=== PATIENT | female | born 1950 | race Caucasian/White ===

== ENCOUNTER 2017-10-04 13:44 | Emergency (ER) | payer MEDICARE ==
[2017-10-04] MEDS ORDERED: Sodium Chloride 0.9% 1000 ML 1,000 ML IV SCH (14:00)
--- NOTE | 2017-10-04 14:01 | ERPHSYRPT ---
- History of Present Illness Time Seen by Provider: 10/04/17 13:45 Source: patient, EMS (ave rosalaurenb en route), [facility] records Physician History: CC: abd pain and short of air Hx: 66 y/o patient of Dr Radha Hennessy. She lives in [place]. Sh ehas hx of DM, Bipolar disorder, depression, lymphoid leukemia, COPD, Anemia, hypercholesterolemia, GERD. Recently found to have cirrhosis and possible liver mets on CT. She is scheduled for CT guided liver biopsy soon. She has increased abd pain so was sent to ER. EMS noted some shortness of breath so gave nebs. No fever or chills. No vomiting. No chest pain. Timing/Duration: day(s) (few) Allergies/Adverse Reactions: Sulfa (Sulfonamide Antibiotics) [Sulfa(Sulfonamide Antibiotics)] Allergy ( Intermediate, Verified 10/04/17 14:06) Hives venlafaxine [From Effexor] Allergy (Verified 10/04/17 14:06) Home Medications: Benazepril HCl [Lotensin] 20 mg PO DAILY 11/08/12 [History] Bupropion HCl [Wellbutrin] 100 mg PO BID 11/08/12 [History] Glipizide 2.5 mg 10 mg PO BID 11/08/12 [History] Ibuprofen 400 mg [Motrin 400 mg] 400 mg PO TID 11/08/12 [History] Insulin Glargine [Lantus Insulin] 60 unit SQ HS 11/08/12 [History] Metformin HCl 1000 mg [Glucophage 1000 MG] 1,000 mg PO BID 11/08/12 [History] Omeprazole 20 MG [Prilosec 20 mg] 40 mg PO DAILY 11/08/12 [History] Pioglitazone HCl [Actos] 30 mg PO DAILY 11/08/12 [History] Quetiapine Fumarate 100 mg [Seroquel 100 MG] 400 mg PO HS 11/08/12 [ History] Clonazepam 1 mg PO 03/17/13 [History] Hx Tetanus, Diphtheria Vaccination/Date Given: Yes Hx Influenza Vaccination/Date Given: Yes (2011) Hx Pneumococcal Vaccination/Date Given: Yes (2010) - Review of Systems Constitutional: Fatigue, Malaise, Weakness, No Fever, No Chills Eyes: No Symptoms Ears, Nose, & Throat: No Symptoms Respiratory: Dyspnea, No Cough Cardiac: No Chest Pain Abdominal/Gastrointestinal: Abdominal Pain, No Nausea, No Vomiting, No Diarrhea Genitourinary Symptoms: No Dysuria Skin: No Rash Neurological: No Headache Hematologic/Lymphatic: Easy Bruising All Other Systems: Reviewed and Negative - Past Medical History Pertinent Past Medical History: Yes (CLL, bipolar) Neurological History: TIA ENT History: No Pertinent History Cardiac History: No Pertinent History Respiratory History: COPD, Emphysema Endocrine Medical History: Diabetes Type II Musculoskeletal History: No Pertinent History GI Medical History: No Pertinent History History: No Pertinent History Psycho-Social History: Anxiety, Bipolar, Depression Female Reproductive Disorders: Cervical Cancer Other Medical History: LEUKEMIA DX 5 YRS AGO. - Past Surgical History Past Surgical History: Yes Neuro Surgical History: No Pertinent History Cardiac: No Pertinent History Respiratory: No Pertinent History Gastrointestinal: No Pertinent History Genitourinary: No Pertinent History Musculoskeletal: No Pertinent History Female Surgical History: Other Other Surgical History: D&C - Social History Smoking Status: Current every day smoker How long have you smoked: 49 Exposure to second hand smoke: No Alcohol Use: None Drug Use: none Patient Lives Alone: No (LIVES WITH SON) Significant Family History: no pertinent family hx - Nursing Vital Signs Nursing Vital Signs: Initial Vital Signs Temperature 97.7 F 10/04/17 13:45 Pulse Rate 58 L 10/04/17 13:45 Respiratory Rate 22 10/04/17 13:45 Blood Pressure 97/65 10/04/17 13:45 O2 Sat by Pulse Oximetry 95 10/04/17 13:45 Pain Scale Pain Intensity 6 - Physical Exam General Appearance: alert, obese, other (sallow appearing lady) Eye Exam: PERRL/EOMI, No scleral icterus Ears, Nose, Throat Exam: dry mucous membranes Neck Exam: supple Respiratory Exam: diminished breath sounds, rhonchi Cardiovascular Exam: regular rate/rhythm, tachycardia Gastrointestinal/Abdomen Exam: soft, distention, other (diffuse discomfort) Back Exam: normal inspection Extremity Exam: pedal edema Neurologic Exam: alert, oriented x 3, cooperative, No motor deficits Skin Exam: warm, dry - Course Nursing assessment & vital signs reviewed: Yes EKG Interpreted by Me: RATE (121), Sinus Tach, NORMAL AXIS, NORMAL INTERVALS ( QTc 433), Other (late transition) - Radiology Exams cxr X-ray Interpretation: Teleradiologist Report ( new 6.5 cm left apical masslike opacity. Minimal bibasilar) Ordered Tests: Active Orders 24 hr Category Date Time Status Catheter-[place] STAT Care 10/04/17 13:50 Active EKG-ER Only STAT Care 10/04/17 13:50 Active IV Insertion STAT Care 10/04/17 13:50 Active IV Insertion-2nd Peripheral STAT Care 10/04/17 14:07 Active NPO (ED) STAT Care 10/04/17 13:50 Active Oxygen-ED Only NASAL CANNULA 2 lpm Care 10/04/17 13:54 Active Rectal Temperature STAT Care 10/04/17 13:54 Active ABDOMEN AND PELVIS W CONTRAST [CT] Stat Exams 10/04/17 14:27 Ordered CHEST 1 VIEW (PORTABLE) Stat Exams 10/04/17 13:50 Completed BLOOD CULTURE Stat Lab 10/04/17 14:21 Received BMP Routine Lab 10/04/17 14:21 Completed CBC W DIFF Stat Lab 10/04/17 14:21 Completed CULTURE,URINE Stat Lab 10/04/17 14:50 Received Hepatic Function Panel Routine Lab 10/04/17 14:21 Completed LIPASE Routine Lab 10/04/17 14:21 Completed Lactic Acid Stat Lab 10/04/17 14:10 Completed Lactic Acid Stat Lab 10/04/17 16:25 Results Manual Differential NC Stat Lab 10/04/17 14:21 Completed PROTIME WITH INR Stat Lab 10/04/17 14:21 Completed PTT Stat Lab 10/04/17 14:21 Completed TROPONIN Q3H Lab 10/04/17 14:21 Completed TROPONIN Q3H Lab 10/04/17 17:00 Ordered TROPONIN Q3H Lab 10/04/17 20:00 Ordered TROPONIN Q3H Lab 10/04/17 23:00 Ordered TROPONIN Q3H Lab 10/05/17 02:00 Ordered UA W/ MICROSCOPIC Stat Lab 10/04/17 14:50 Completed VENOUS BLOOD GAS Stat Lab 10/04/17 14:10 Completed Medication Summary Generic Name Dose Route Start Last Admin Trade Name Freq PRN Reason Stop Dose Admin Sodium Chloride 1,000 mls @ 100 mls/hr 10/04/17 14:00 10/04/17 14:13 Sodium Chloride 0.9% 1000 Ml IV 11/03/17 13:59 100 mls/hr .Q10H JURGEN Administration Cefepime HCl 2 g/ Sodium 100 mls @ 200 mls/hr 10/04/17 15:00 10/04/17 14:57 Chloride IV 11/03/17 14:59 200 mls/hr Q12HT JURGEN Administration Sodium Chloride 1,000 mls @ 999 mls/hr 10/04/17 14:45 10/04/17 15:23 Sodium Chloride 0.9% 1000 Ml IV 10/04/17 17:45 999 mls/hr .Q1H1M JURGEN Administration Discontinued Medications Generic Name Dose Route Start Last Admin Trade Name Rashard PRN Reason Stop Dose Admin Sodium Chloride Confirm 10/04/17 14:39 Sodium Chloride 0.9% 1000 Ml Administered 10/04/17 14:40 Dose 2,000 mls @ ud .ROUTE .K-MED ONE Lab/Rad Data: Laboratory Result Diagrams 10/04/17 14:21 10/04/17 14:21 Laboratory Results 10/04/17 10/04/17 10/04/17 Range/Units 16:25 14:50 14:21 WBC (4.0-10.5) K/mm3 RBC (4.1-5.4) M/mm3 Hgb (12.0-16.0) gm/dl Hct (35-47) % MCV (78-100) fl MCH (26-32) pg MCHC (32-36) g/dl RDW (11.5-14.0) % Plt Count (150-450) K/mm3 MPV (6-9.5) fl Segmented Neutrophils (36.0-66.0) % Band Neutrophils (0.0-2.0) % Lymphocytes (Manual) (24-44) % Monocytes (Manual) (0.0-12.0) % Eosinophils (Manual) (0.00-3.0) % Differential Comment Platelet Estimate (NORMAL) Polychromasia Anisocytosis Morphology Comment INR (0.8-3.0) APTT (25.3-37.0) SECONDS VBG pH (7.32-7.42) VBG pCO2 at Pat Temp (42-55) mm/Hg VBG pO2 at Pat Temp (25-40) mm/Hg VBG HCO3 (22-28) meq/L VBG O2 Sat (Josefa) (95-100) VBG Base Excess (-2.0-2.0) VBG Hemoglobin VBG Carboxyhemoglobin (0.0-6.9) % T HGB POC Potassium (3.5-5.1) Sodium (137-145) mmol/L Potassium (3.5-5.1) mmol/L Chloride (98-107) mEq/L Carbon Dioxide (22-30) mmol/L Anion Gap (5-15) MEQ/L BUN (7-17) mg/dl Creatinine (0.52-1.04) mg/dl Estimated GFR ML/MIN Glucose (74-106) mg/dL Lactic Acid 11.0 H (0.4-2.0) Calcium (8.4-10.2) mg/dL Total Bilirubin (0.2-1.3) mg/d? Direct Bilirubin (0.0-0.4) MG/DL AST (14-36) U/L ALT (0-35) U/L Alkaline Phosphatase (38-126) U/L Ammonia (9-30) umol/L Troponin I (0.000-0.034) ng/ml Serum Total Protein (6.3-8.2) mg/dl Albumin (3.5-5.0) g/dl Lipase (23-300) U/L Ur Collection Type CCMS Urine Color CARMEN (YELLOW) Urine Appearance SLIGHTLY CLOUDY (CLEAR) Urine pH 5.0 (5-6) Ur Specific Sentinel 1.025 (1.005-1.025) Urine Protein TRACE (Negative) Urine Ketones NEGATIVE (NEGATIVE) Urine Blood 50 (0-5) Willard/ul Urine Nitrite NEGATIVE (NEGATIVE) Urine Bilirubin NEGATIVE (NEGATIVE) Urine Urobilinogen NORMAL (0-1) mg/dL Ur Leukocyte Esterase NEGATIVE (NEGATIVE) Urine Microscopic RBC 2-5 (0-2) /HPF Urine Microscopic WBC 0-2 (0-5) /HPF Ur Epithelial Cells MODERATE (FEW) /HPF Urine Bacteria RARE (NEGATIVE) /HPF Urine Culture Reflexed YES (NO) Urine Glucose NEGATIVE (NEGATIVE) mg/dL Specimen Received T@1500 ABO Group O Rh Factor POS Antibody Screen NEG (NEGATIVE) 10/04/17 10/04/17 10/04/17 Range/Units 14:21 14:21 14:21 WBC (4.0-10.5) K/mm3 RBC (4.1-5.4) M/mm3 Hgb (12.0-16.0) gm/dl Hct (35-47) % MCV (78-100) fl MCH (26-32) pg MCHC (32-36) g/dl RDW (11.5-14.0) % Plt Count (150-450) K/mm3 MPV (6-9.5) fl Segmented Neutrophils (36.0-66.0) % Band Neutrophils (0.0-2.0) % Lymphocytes (Manual) (24-44) % Monocytes (Manual) (0.0-12.0) % Eosinophils (Manual) (0.00-3.0) % Differential Comment Platelet Estimate (NORMAL) Polychromasia Anisocytosis Morphology Comment INR 1.29 (0.8-3.0) APTT 39.3 H (25.3-37.0) SECONDS VBG pH (7.32-7.42) VBG pCO2 at Pat Temp (42-55) mm/Hg VBG pO2 at Pat Temp (25-40) mm/Hg VBG HCO3 (22-28) meq/L VBG O2 Sat (Josefa) (95-100) VBG Base Excess (-2.0-2.0) VBG Hemoglobin VBG Carboxyhemoglobin (0.0-6.9) % T HGB POC Potassium (3.5-5.1) Sodium 136 L (137-145) mmol/L Potassium 4.9 (3.5-5.1) mmol/L Chloride 96 L (98-107) mEq/L Carbon Dioxide 16 L (22-30) mmol/L Anion Gap 28.9 H (5-15) MEQ/L BUN 33 H (7-17) mg/dl Creatinine 1.35 H (0.52-1.04) mg/dl Estimated GFR 41 ML/MIN Glucose 164 H (74-106) mg/dL Lactic Acid (0.4-2.0) Calcium 8.9 (8.4-10.2) mg/dL Total Bilirubin 2.40 H (0.2-1.3) mg/d? Direct Bilirubin 2.1 H (0.0-0.4) MG/DL AST 230 H (14-36) U/L ALT 98 H (0-35) U/L Alkaline Phosphatase 1090 H (38-126) U/L Ammonia 40 H (9-30) umol/L Troponin I < 0.012 (0.000-0.034) ng/ml Serum Total Protein 5.6 L (6.3-8.2) mg/dl Albumin 3.3 L (3.5-5.0) g/dl Lipase 58 (23-300) U/L Ur Collection Type Urine Color (YELLOW) Urine Appearance (CLEAR) Urine pH (5-6) Ur Specific Sentinel (1.005-1.025) Urine Protein (Negative) Urine Ketones (NEGATIVE) Urine Blood (0-5) Willard/ul Urine Nitrite (NEGATIVE) Urine Bilirubin (NEGATIVE) Urine Urobilinogen (0-1) mg/dL Ur Leukocyte Esterase (NEGATIVE) Urine Microscopic RBC (0-2) /HPF Urine Microscopic WBC (0-5) /HPF Ur Epithelial Cells (FEW) /HPF Urine Bacteria (NEGATIVE) /HPF Urine Culture Reflexed (NO) Urine Glucose (NEGATIVE) mg/dL Specimen Received ABO Group Rh Factor Antibody Screen (NEGATIVE) 10/04/17 10/04/17 10/04/17 Range/Units 14:21 14:10 14:10 WBC 25.3 H* (4.0-10.5) K/mm3 RBC 4.07 L (4.1-5.4) M/mm3 Hgb 11.8 L (12.0-16.0) gm/dl Hct 37.4 (35-47) % MCV 91.9 (78-100) fl MCH 28.9 (26-32) pg MCHC 31.6 L (32-36) g/dl RDW 20.1 H (11.5-14.0) % Plt Count 177 (150-450) K/mm3 MPV 10.3 H (6-9.5) fl Segmented Neutrophils 28 L (36.0-66.0) % Band Neutrophils 6 H (0.0-2.0) % Lymphocytes (Manual) 58 H (24-44) % Monocytes (Manual) 7 (0.0-12.0) % Eosinophils (Manual) 1 (0.00-3.0) % Differential Comment ABNORMAL Platelet Estimate NORMAL (NORMAL) Polychromasia RARE Anisocytosis 1+ Morphology Comment INR (0.8-3.0) APTT (25.3-37.0) SECONDS VBG pH 7.31 L (7.32-7.42) VBG pCO2 at Pat Temp 32 L (42-55) mm/Hg VBG pO2 at Pat Temp 44 H (25-40) mm/Hg VBG HCO3 16.1 L* (22-28) meq/L VBG O2 Sat (Josefa) 82.9 L (95-100) VBG Base Excess -9.1 L (-2.0-2.0) VBG Hemoglobin 11.8 VBG Carboxyhemoglobin 3.1 (0.0-6.9) % T HGB POC Potassium 4.8 (3.5-5.1) Sodium (137-145) mmol/L Potassium (3.5-5.1) mmol/L Chloride (98-107) mEq/L Carbon Dioxide (22-30) mmol/L Anion Gap (5-15) MEQ/L BUN (7-17) mg/dl Creatinine (0.52-1.04) mg/dl Estimated GFR ML/MIN Glucose (74-106) mg/dL Lactic Acid 14.1 H (0.4-2.0) Calcium (8.4-10.2) mg/dL Total Bilirubin (0.2-1.3) mg/d? Direct Bilirubin (0.0-0.4) MG/DL AST (14-36) U/L ALT (0-35) U/L Alkaline Phosphatase (38-126) U/L Ammonia (9-30) umol/L Troponin I (0.000-0.034) ng/ml Serum Total Protein (6.3-8.2) mg/dl Albumin (3.5-5.0) g/dl Lipase (23-300) U/L Ur Collection Type Urine Color (YELLOW) Urine Appearance (CLEAR) Urine pH (5-6) Ur Specific Sentinel (1.005-1.025) Urine Protein (Negative) Urine Ketones (NEGATIVE) Urine Blood (0-5) Willard/ul Urine Nitrite (NEGATIVE) Urine Bilirubin (NEGATIVE) Urine Urobilinogen (0-1) mg/dL Ur Leukocyte Esterase (NEGATIVE) Urine Microscopic RBC (0-2) /HPF Urine Microscopic WBC (0-5) /HPF Ur Epithelial Cells (FEW) /HPF Urine Bacteria (NEGATIVE) /HPF Urine Culture Reflexed (NO) Urine Glucose (NEGATIVE) mg/dL Specimen Received ABO Group Rh Factor Antibody Screen (NEGATIVE) - Progress Progress Note: 10/04/17 16:06 CXR: Portable chest demonstrates new 6.5 cm left apical masslike opacity. Minimal bibasilar fibrosis/scarring. No large effusion. Heart is not enlarged. Bony thorax intact with mild degenerative changes. Impression: New left apical masslike opacity better evaluated with CT chest exam. Of interest, CT abdomen/pelvis October 01, 2017 reports hepatic metastasis. Signed by: Dixon Hadley Date Signed: 10/04/2017 IVF bolus given. Cultures sent. Cefepime given. Called Dr Radha Hennessy and he advised is under the care of Dr Crawford oncology. Called Dr De León for [place] and he advised transfer to [place] under hospitalist. Called [place] one call and await accepting physician. 10/04/17 16:[address] Ruby Avalos [facility] who accepts transfer to [facility] IP Monitor. Repeat lactic 11. Pt alert and aware of plan. Counseled pt/family regarding: lab results, diagnosis, need for follow-up, rad results - Departure Time of Disposition: 16:31 Departure Disposition: Transfer ([facility]) Clinical Impression: Lactic acidosis, Sepsis, lung mass with liver metastasis Condition: Fair Critical Care Time: Yes Critical Care Time(excluding separately billable procedures): 30-74 minutes Referrals: OSMIN FAN [Primary Care Provider] -
[2017-10-04 14:15] LABS: VBG BASE EXCESS -9.1 (-2.0-2.0); VBG CARBOXYHEMOGLOBIN 3.1 % T HGB (0.0-6.9); VBG HCO3- 16.1 meq/L (22-28); VBG HEMOGLOBIN 11.8; VBG O2 SATURATION 82.9 (95-100); VBG POTASSIUM 4.8 (3.5-5.1); VBG pH 7.31 (7.32-7.42)
[2017-10-04 14:16] LABS: Lactic Acid 14.1 (0.4-2.0)
[2017-10-04 14:22] LABS: Hematocrit 37.4 % (35-47); Hemoglobin 11.8 gm/dl (12.0-16.0); Mean Cell Volume 91.9 fl (78-100); Mean Corpuscular Hgb Concent. 31.6 g/dl (32-36); Mean Platelet Volume 10.3 fl (6-9.5); Platelet Count 177 K/mm3 (150-450); Red Blood Count 4.07 M/mm3 (4.1-5.4); Red Cell Distribution Width 20.1 % (11.5-14.0)
[2017-10-04 14:25] LABS: Mean Corpuscular Hemoglobin 28.9 pg (26-32); White Blood Count 25.3 K/mm3 (4.0-10.5)
[2017-10-04 14:36] LABS: ANISOCYTOSIS 1+; BAND 6 % (0.0-2.0); Eosinophil 1 % (0.00-3.0); Lymphocytes 58 % (24-44); Monocyte 7 % (0.0-12.0); Neutrophils 28 % (36.0-66.0); Platelet Estimate NORMAL (NORMAL); Polychromasia RARE; Total Cells Counted 100
[2017-10-04 14:38] LABS: Granulocyte Absolute (ANC) 8.5 (1.4-6.9)
[2017-10-04] MEDS ORDERED: Sodium Chloride 0.9% 1000 ML 2,000 ML ONE (14:39)
[2017-10-04] MEDS: Sodium Chloride 0.9% 1000 ML 1,000 ML IV SCH ×3 (14:41→15:23)
--- NOTE | 2017-10-04 14:43 | XRAY ---
Indication: Short of breath. Distended abdomen. COPD. Comparison: November 08, 2013. Portable chest demonstrates new 6.5 cm left apical masslike opacity. Minimal bibasilar fibrosis/scarring. No large effusion. Heart is not enlarged. Bony thorax intact with mild degenerative changes. Impression: New left apical masslike opacity better evaluated with CT chest exam. Of interest, CT abdomen/pelvis October 01, 2017 reports hepatic metastasis.
[2017-10-04 14:51] LABS: INR 1.29 (0.8-3.0)
[2017-10-04 14:54] LABS: PTT 39.3 SECONDS (25.3-37.0)
[2017-10-04 15:00] LABS: ABO TYPING O; ALBUMIN 3.3 g/dl (3.5-5.0); ALKALINE PHOSPHATASE 1090 U/L (38-126); ANION GAP 28.9 MEQ/L (5-15); Antibody Screen NEG (NEGATIVE); BLOOD UREA NITROGEN 33 mg/dl (7-17); CHLORIDE 96 mEq/L (98-107); Calcium 8.9 mg/dL (8.4-10.2); Creatinine 1 1.35 mg/dl (0.52-1.04); Direct Bilirubin 2.1 MG/DL (0.0-0.4); Glucose 164 mg/dL (74-106); LIPASE 58 U/L (23-300); Potassium 4.9 mmol/L (3.5-5.1); RH TYPING POS; SODIUM 136 mmol/L (137-145); Total Protein 5.6 mg/dl (6.3-8.2)
[2017-10-04] MEDS ORDERED: Maxipime 2 GM** 2 G in Sodium Chloride 100ML MINI-BAG PLUS 100 ML IV SCH (15:00)
[2017-10-04 15:06] LABS: SGOT/AST 230 U/L (14-36)
[2017-10-04 15:09] LABS: Appearance SLIGHTLY CLOUDY (CLEAR); Leukocyte Esterase NEGATIVE (NEGATIVE); Specific Gravity 1.025 (1.005-1.025)
[2017-10-04 15:10] LABS: Bilirubin NEGATIVE (NEGATIVE); Blood 50 Ery/ul (0-5); Glucose NEGATIVE (NEGATIVE); Ketones NEGATIVE (NEGATIVE); Nitrite NEGATIVE (NEGATIVE); Protein,Urine Dip TRACE (Negative); Urobilinogen NORMAL mg/dL (0-1)
[2017-10-04 15:11] LABS: Bacteria RARE /HPF (NEGATIVE); Epithelial Cells MODERATE /HPF (FEW); WBC 0-2 /HPF (0-5)
[2017-10-04 15:20] LABS: SGPT/ALT 98 U/L (0-35)
[2017-10-04 15:22] LABS: Carbon Dioxide 16 mmol/L (22-30); TROPONIN < 0.012 ng/ml (0.000-0.034)
[2017-10-04 17:21] VITALS: BP 127/56; PULSE 124; O2SAT 96
== END 2017-10-04 17:50 | disposition short-term general hospital (02) ==
LOC: ED 13:44
DX: E87.2 Acidosis (principal); A41.9 Sepsis, unspecified organism; C78.7 Secondary malignant neoplasm of liver and intrahepatic bile duct; K74.60 Unspecified cirrhosis of liver; Z79.899 Other long term (current) drug therapy; R91.8 Other nonspecific abnormal finding of lung field
CPT/HCPCS: 36000; 36415; 51702; 71045; 80048; 80076; 81000; 82140; 82805; 83605; 83690; 84484; 85025; 85610; 85730; 86850; 86900; 86901; 87040; 87086; 93005; 96360; 96361; 96365; 99285; J0692